=== PATIENT | female | born 1995 | race Caucasian/White ===

== ENCOUNTER 2018-03-16 15:03 | Outpatient (CLI) | payer BC ==
[~2018-03-16] VITALS: Ht 154.9 cm; Wt 78.6 kg
[2018-03-16] MEDS ORDERED: AUGMENTIN875 MG PO (17:33)
[2018-03-16 18:09] VITALS: BP 131/82
[2018-03-16] MEDS ORDERED: EXPECTA PRENAT1 EACH PO (18:21)
[2018-03-16 19:03] VITALS: BP 148/91
[2018-03-16 19:34] LABS: BASOPHIL (%) 0.2 % (0-1); EOSINOPHIL (%) 0.2 % (0-5); HEMATOCRIT 32.7 % (36.0-46.0); HEMOGLOBIN 11.4 G/DL (11.9-15.5); IMMATURE GRANULOCYTE (%) 0.4 % (0.0-0.7); LYMPHOCYTE (%) 10.9 % (15-42); LYMPHOCYTE COUNT 1.3 K/uL (1.0-2.8); MCH 30.1 PG (29.0-34.0); MCHC 34.9 G/DL (30.0-36.0); MCV 86.3 FL (83-99); MONOCYTE (%) 4.4 % (3-12); MONOCYTE COUNT 0.5 K/uL (0-0.8); NEUTROPHIL (%) 83.9 % (45-76); NEUTROPHIL COUNT 9.8 K/uL (1.8-6.4); PLATELET COUNT 215 K/uL (156-360); RBC DIS.WIDTH-CV 12.5 % (11.8-14.6); RBC DIS.WIDTH-SD 39.3 % (39-53); RED BLOOD COUNT 3.79 M/uL (3.80-5.20); WHITE BLOOD COUNT 11.7 K/uL (4.1-10.2)
[2018-03-16 21:53] VITALS: BP 130/74
[2018-03-16 23:40] LABS: HEMATOCRIT 28.6 % (36.0-46.0); HEMOGLOBIN 10.3 G/DL (11.9-15.5); MCV 85.6 FL (83-99)
[2018-03-17 00:05] VITALS: BP 104/59
[2018-03-17 03:07] VITALS: BP 113/72
[2018-03-17 06:04] LABS: HEMATOCRIT 35.2 % (36.0-46.0); HEMOGLOBIN 12.2 G/DL (11.9-15.5); MCV 87.1 FL (83-99)
[2018-03-17] MEDS ORDERED: CLINDAMYCIN HC300 MG PO (11:15)
[2018-03-17] MEDS ORDERED: ENDOCET 5-3251 EACH PO (11:15)
[2018-03-19] MEDS ORDERED: COLACE100 MG PO (08:30)
[2018-03-19] MEDS ORDERED: CLEOCIN150 MG PO (08:31)
[2018-03-19] MEDS ORDERED: PERCOCET 2.51 TABLET PO ×2 (08:48→13:24)
[2018-03-19] MEDS ORDERED: PRENATAL 19 TA1 EACH PO (08:49)
== END 2018-03-17 15:04 | disposition home or self-care (01) ==
LOC: EME 15:03 → LDRP-OP 15:03 → EDSTATUS 18:01 → 2WEST 18:04
PROVIDERS: Obstetrics & Gynecology
PROC: 0U9L00Z Drainage of Vestibular Gland with Drainage Device, Open Approach (ICD-10-PCS; principal; 2018-03-16)
DX: O23.593 Infection of other part of genital tract in pregnancy, third trimester (principal); N75.0 Cyst of Bartholin's gland; O99.343 Other mental disorders complicating pregnancy, third trimester; F41.9 Anxiety disorder, unspecified; Z3A.37 37 weeks gestation of pregnancy
CPT/HCPCS: 59025; 85014; 85018; 85025; 99281; 99284; G0378; J0696; J7120

== ENCOUNTER 2018-03-19 08:54 | Day surgery (SDC) | payer BC ==
[~2018-03-19] VITALS: Ht 154.9 cm; Wt 78.5 kg
[~2018-03-19 08:54] MED LIST: AUGMENTIN875 MG PO; CLEOCIN150 MG PO; CLINDAMYCIN HC300 MG PO; COLACE100 MG PO; ENDOCET 5-3251 EACH PO; EXPECTA PRENAT1 EACH PO; PERCOCET 2.51 TABLET PO; PRENATAL 19 TA1 EACH PO
[2018-03-19 09:42] VITALS: BP 126/82
[2018-03-19 09:46] LABS: BASOPHIL (%) 0.5 % (0-1); EOSINOPHIL (%) 1.3 % (0-5); EOSINOPHIL COUNT 0.1 K/uL (0-0.3); HEMATOCRIT 35.1 % (36.0-46.0); HEMOGLOBIN 12.3 G/DL (11.9-15.5); IMMATURE GRANULOCYTE (%) 0.4 % (0.0-0.7); LYMPHOCYTE (%) 17.4 % (15-42); LYMPHOCYTE COUNT 1.5 K/uL (1.0-2.8); MCH 30.4 PG (29.0-34.0); MCV 86.9 FL (83-99); MONOCYTE (%) 5.4 % (3-12); MONOCYTE COUNT 0.5 K/uL (0-0.8); NEUTROPHIL COUNT 6.4 K/uL (1.8-6.4); PLATELET COUNT 214 K/uL (156-360); RBC DIS.WIDTH-CV 12.6 % (11.8-14.6); RED BLOOD COUNT 4.04 M/uL (3.80-5.20); WHITE BLOOD COUNT 8.5 K/uL (4.1-10.2)
[2018-03-19 09:57] LABS: PTT 25.2 SEC (25-37)
[2018-03-19 09:58] LABS: ALBUMIN 3.6 g/dL (3.2-4.8); CHLORIDE 106 mEq/L (99-109); POTASSIUM 4.9 mEq/L (3.7-5.4); SODIUM 135 mEq/L (136-147)
[2018-03-19 10:00] LABS: GLUCOSE 89 mg/dL (70-99)
[2018-03-19 10:02] LABS: TOTAL BILIRUBIN 0.3 mg/dL (0.0-1.0)
[2018-03-19 10:04] LABS: ALKALINE PHOSPHATASE 192 IU/L (3-129); CREATININE 0.7 mg/dL (0.6-1.3); GFR ESTIMATE (CALCULATED) > 59 mL/min/
[2018-03-19 10:05] LABS: UREA NITROGEN (BUN) 7 mg/dL (9-23)
[2018-03-19 10:06] LABS: AST (GOT) 34 IU/L (2-34)
[2018-03-19 10:07] LABS: ALT (GPT) 20 IU/L (3-49)
[2018-03-19] MEDS ORDERED: CLEOCIN300 MG PO (13:24)
[2018-03-19] MEDS ORDERED: PERCOCET 2.51 TABLET PO (13:24)
[2018-03-19 15:24] VITALS: BP 108/62
[2018-03-19 16:30] VITALS: BP 114/72
[2018-03-19 19:08] VITALS: BP 11/70
== END 2018-03-19 19:09 | disposition home or self-care (01) ==
LOC: SDC 08:54
PROVIDERS: Obstetrics & Gynecology
PROC: 0U9MXZZ Drainage of Vulva, External Approach (ICD-10-PCS; principal; 2018-03-19)
DX: O23.593 Infection of other part of genital tract in pregnancy, third trimester (principal); Z3A.37 37 weeks gestation of pregnancy
CPT/HCPCS: 80053; 85025; 85610; 85730; 86850; 86900; 86901; 87070; 87075; 87205; J0690; J2405; S0020

== ENCOUNTER 2018-04-05 17:50 | Inpatient (IN) | payer BC ==
[2018-04-05] VITALS (11 sets, daily range): BP systolic 118–190; BP diastolic 53–117
[~2018-04-05 17:50] MED LIST changes: +CLEOCIN300 MG PO
[2018-04-05 19:28] LABS: BASOPHIL (%) 0.3 % (0-1); EOSINOPHIL (%) 1.2 % (0-5); EOSINOPHIL COUNT 0.1 K/uL (0-0.3); HEMATOCRIT 33.5 % (36.0-46.0); HEMOGLOBIN 11.9 G/DL (11.9-15.5); IMMATURE GRANULOCYTE (%) 0.4 % (0.0-0.7); LYMPHOCYTE (%) 22.6 % (15-42); LYMPHOCYTE COUNT 1.7 K/uL (1.0-2.8); MCH 30.8 PG (29.0-34.0); MCHC 35.5 G/DL (30.0-36.0); MCV 86.8 FL (83-99); MONOCYTE (%) 6.8 % (3-12); MONOCYTE COUNT 0.5 K/uL (0-0.8); NEUTROPHIL (%) 68.7 % (45-76); NEUTROPHIL COUNT 5.3 K/uL (1.8-6.4); PLATELET COUNT 231 K/uL (156-360); RBC DIS.WIDTH-CV 12.8 % (11.8-14.6); RED BLOOD COUNT 3.86 M/uL (3.80-5.20); WHITE BLOOD COUNT 7.7 K/uL (4.1-10.2)
[2018-04-05 22:00] LABS: AMPHETAMINE NEGATIVE (500 ng/mL); BARBITURATES NEGATIVE (200 ng/mL); BENZODIAZEPINES NEGATIVE (150 ng/mL); BUPRENORPHINE NEGATIVE (10 ng/mL); COCAINE NEGATIVE (150 ng/mL); METHADONE NEGATIVE (200 ng/mL); METHAMPHETAMINE NEGATIVE (500 ng/mL); OPIATES (MORPHINE) NEGATIVE (100 ng/mL); OXYCODONE NEGATIVE (100 ng/mL); PHENCYCLIDINE NEGATIVE (25 ng/mL); PROPOXYPHENE NEGATIVE (300 ng/mL); THC CANNABINOIDS NEGATIVE (50 ng/mL); TRICYCLIC ANTIDEPRESSANTS NEGATIVE (300 ng/mL)
[2018-04-06] VITALS (22 sets, daily range): BP systolic 103–147; BP diastolic 58–99
[2018-04-06] MEDS ORDERED: IBUPROFEN800 MG PO (11:21)
== END 2018-04-08 15:00 | disposition home or self-care (01) | DRG 775 ==
LOC: LDRP-OP 17:50 → 2WEST 17:51 → LDRP-OP 05-05 15:11
PROVIDERS: Nurse Practitioner
PROC: 00HU33Z Insertion of Infusion Device into Spinal Canal, Percutaneous Approach (ICD-10-PCS; principal; 2018-04-06)
PROC: 3E0R3BZ Introduction of Anesthetic Agent into Spinal Canal, Percutaneous Approach (ICD-10-PCS; principal; 2018-04-06)
PROC: 10E0XZZ Delivery of Products of Conception, External Approach (ICD-10-PCS; principal; 2018-04-06)
PROC: 3E033VJ Introduction of Other Hormone into Peripheral Vein, Percutaneous Approach (ICD-10-PCS; principal; 2018-04-06)
DX: O42.02 Full-term premature rupture of membranes, onset of labor within 24 hours of rupture (principal); O63.9 Long labor, unspecified; O99.824 Streptococcus B carrier state complicating childbirth; O99.89 Other specified diseases and conditions complicating pregnancy, childbirth and the puerperium; N75.0 Cyst of Bartholin's gland; Z3A.40 40 weeks gestation of pregnancy; Z37.0 Single live birth
CPT/HCPCS: 85025; C1755; G0378; J2540; J3010; J7120